=== PATIENT | male | born 1985 | race Caucasian/White ===

== ENCOUNTER 2020-11-17 06:56 | Outpatient (NON) | payer BC, SELFPAY ==
[2020-11-17 18:19] LABS: SARS-CoV-2 RNA PCR Positive
== END 2020-11-17 06:57 ==
PROVIDERS: PCP Family Medicine; Visit Provider Family Medicine
DX: U07.1 COVID-19 (principal); M79.10 Myalgia, unspecified site
CPT/HCPCS: 87635; C9803; U0003

== ENCOUNTER → 2021-03-24 08:17 | Outpatient (CLI) | payer BC, SELFPAY ==
[2021-03-24 18:21] LABS: SARS-CoV-2 RNA PCR Negative
== END ==
PROVIDERS: PCP Family Medicine; Visit Provider Family Medicine
DX: R53.83 Other fatigue (principal); R19.7 Diarrhea, unspecified; Z20.822 Contact with and (suspected) exposure to COVID-19
CPT/HCPCS: C9803; U0003; U0005

== ENCOUNTER → 2023-06-03 08:17 | Outpatient (CLI) | payer BC, SELFPAY ==
--- NOTE | ~2023-06-03 | US_ITS ---
EXAMINATION: US scrotum doppler DATE: 06/03/2023 08:52 INDICATION: Left testicular pain. TECHNIQUE: Grayscale and Doppler ultrasound images of the testes were obtained. COMPARISON: None. FINDINGS: The right testis measures 4.1 x 2.5 x 2.5 cm. The left testis measures 4.0 x 2.5 x 3.2 cm. There is normal vascular flow to both testes. The right epididymis is normal with normal vascular ryne w. The left epididymis demonstrates increased vascularity, consistent with epididymitis. There are sm all bilateral hydroceles. IMPRESSION: 1. Left-sided epididymitis. 2. Small bilateral hydroceles. Reviewed, dictated and finalized at location A.
== END ==
PROVIDERS: PCP Family Medicine
DX: N50.812 Left testicular pain (principal); N45.1 Epididymitis; N43.3 Hydrocele, unspecified
CPT/HCPCS: 76870; 93976

== ENCOUNTER 2024-07-03 12:06 | Outpatient (RCR) | payer BC, SELFPAY ==
[2023-03-09 08:53] LABS: Hematocrit 44.2 % (42.0-52.0); Hemoglobin 15.2 g/dL (14.0-18.0); Mean Corpuscular HGB Conc 34.4 g/dl (32-36); Mean Corpuscular Hemoglobin 31.7 pg (26-34); Mean Corpuscular Volume 92.3 fl (80-100); Mean Platelet Volume 11.7 fl (7.4-10.4); Platelet Count Result 218 k/mm3 (150-375); Red Blood Count 4.79 M/mm3 (4.6-6.20); Red Cell Distribution Width 11.6 % (11.5-14.5); White Blood Count 7.2 K/mm3 (4.5-10.0)
[2023-03-09 10:35] LABS: Iron 83 ug/dL (49-181)
[2023-03-09 11:07] LABS: Percent Iron Saturation 34 % (20-50)
[2023-05-25 09:02] LABS: Hematocrit 45.8 % (42.0-52.0); Hemoglobin 15.9 g/dL (14.0-18.0); Mean Corpuscular HGB Conc 34.7 g/dl (32-36); Mean Corpuscular Hemoglobin 31.9 pg (26-34); Mean Corpuscular Volume 91.8 fl (80-100); Mean Platelet Volume 11.1 fl (7.4-10.4); Platelet Count Result 200 k/mm3 (150-375); Red Blood Count 4.99 M/mm3 (4.6-6.20); Red Cell Distribution Width 12.4 % (11.5-14.5); White Blood Count 7.1 K/mm3 (4.5-10.0)
[2023-05-25 10:39] LABS: Iron 114 ug/dL (49-181)
[2023-05-25 10:51] LABS: Percent Iron Saturation 46 % (20-50)
[2023-07-28 09:47] LABS: Basophils Percent Auto 0.4 % (0.2-1.2); Eosinophils Absolute Auto 0.2 K/mm3 (0-0.3); Eosinophils Percent Auto 2.6 % (0-4.4); Hematocrit 44.1 % (42.0-52.0); Hemoglobin 15.3 g/dL (14.0-18.0); Immature Granulocyte Absolute 0.04 K/mm3 (0.00-0.031); Immature Granulocyte Percent A 0.5 % (0-0.5); Lymphocytes Absolute Auto 1.55 K/mm3 (0.9-3.2); Mean Corpuscular HGB Conc 34.7 g/dl (32-36); Mean Corpuscular Hemoglobin 31.8 pg (26-34); Mean Corpuscular Volume 91.7 fl (80-100); Mean Platelet Volume 11.6 fl (7.4-10.4); Monocytes Absolute Auto 0.6 K/mm3 (0.1-0.6); Monocytes Percent Auto 7.1 % (2.6-8.5); Neutrophils Absolute Auto 5.4 K/mm3 (1.3-6.7); Neutrophils Percent Auto 69.4 % (45.5-73.1); Platelet Count Result 177 k/mm3 (150-375); Red Blood Count 4.81 M/mm3 (4.6-6.20); Red Cell Distribution Width 11.9 % (11.5-14.5); White Blood Count 7.7 K/mm3 (4.5-10.0)
[2023-07-28 11:19] LABS: Iron 164 ug/dL (49-181)
[2023-07-28 11:21] LABS: Alanine Aminotransferase 23 U/L (6-50); Albumin Level 4.6 g/dL (3.5-5.1); Alkaline Phosphatase 77 U/L (38-126); Anion Gap 8 mmol/L (8-16); Aspartate Amino Transferase 30 U/L (17-59); Bilirubin,Total 0.6 mg/dL (0.2-1.3); Blood Urea Nitrogen 22 mg/dL (9-20); Calcium 9.2 mg/dL (8.4-10.2); Carbon Dioxide 29 mmol/L (22-30); Chloride 103 mmol/L (98-107); Estimated Glomerular Filt Rate > 60; Glucose 95 mg/dL (65-110); Potassium 4.2 mmol/L (3.4-5.0); Sodium 140 mmol/L (137-145)
[2023-07-28 11:31] LABS: Percent Iron Saturation 65 % (20-50)
[2023-08-31 10:38] LABS: Basophils Percent Auto 0.3 % (0.2-1.2); Eosinophils Absolute Auto 0.3 K/mm3 (0-0.3); Eosinophils Percent Auto 4.5 % (0-4.4); Hematocrit 44.6 % (42.0-52.0); Hemoglobin 15.3 g/dL (14.0-18.0); Immature Granulocyte Absolute 0.01 K/mm3 (0.00-0.031); Immature Granulocyte Percent A 0.2 % (0-0.5); Lymphocytes Absolute Auto 1.41 K/mm3 (0.9-3.2); Lymphocytes Percent Auto 24.5 % (18.3-44.2); Mean Corpuscular HGB Conc 34.3 g/dl (32-36); Mean Corpuscular Hemoglobin 31.3 pg (26-34); Mean Corpuscular Volume 91.2 fl (80-100); Mean Platelet Volume 11.2 fl (7.4-10.4); Monocytes Absolute Auto 0.4 K/mm3 (0.1-0.6); Monocytes Percent Auto 6.8 % (2.6-8.5); Neutrophils Absolute Auto 3.7 K/mm3 (1.3-6.7); Neutrophils Percent Auto 63.7 % (45.5-73.1); Platelet Count Result 193 k/mm3 (150-375); Red Blood Count 4.89 M/mm3 (4.6-6.20); Red Cell Distribution Width 11.8 % (11.5-14.5); White Blood Count 5.8 K/mm3 (4.5-10.0)
[2023-08-31 12:34] LABS: Iron 140 ug/dL (49-181)
[2023-08-31 12:37] LABS: Alanine Aminotransferase 24 U/L (6-50); Albumin Level 4.4 g/dL (3.5-5.1); Alkaline Phosphatase 73 U/L (38-126); Anion Gap 6 mmol/L (8-16); Aspartate Amino Transferase 30 U/L (17-59); Bilirubin,Total 0.6 mg/dL (0.2-1.3); Blood Urea Nitrogen 19 mg/dL (9-20); Calcium 9.4 mg/dL (8.4-10.2); Carbon Dioxide 29 mmol/L (22-30); Chloride 104 mmol/L (98-107); Estimated Glomerular Filt Rate > 60; Glucose 97 mg/dL (65-110); Potassium 4.4 mmol/L (3.4-5.0); Sodium 139 mmol/L (137-145)
[2023-08-31 12:43] LABS: Percent Iron Saturation 66 % (20-50)
[2023-12-27 14:57] LABS: Hematocrit 42.9 % (42.0-52.0); Mean Corpuscular Hemoglobin 31.6 pg (26-34); Mean Corpuscular Volume 90.5 fl (80-100); Mean Platelet Volume 11.1 fl (7.4-10.4); Platelet Count Result 233 k/mm3 (150-375); Red Blood Count 4.74 M/mm3 (4.6-6.20); Red Cell Distribution Width 11.9 % (11.5-14.5); White Blood Count 9.8 K/mm3 (4.5-10.0)
[2023-12-27 18:37] LABS: Iron 99 ug/dL (49-181)
[2023-12-27 18:47] LABS: Percent Iron Saturation 41 % (20-50)
[2024-07-03 12:15] LABS: Hematocrit 43.1 % (42.0-52.0); Hemoglobin 14.8 g/dL (14.0-18.0); Mean Corpuscular HGB Conc 34.3 g/dl (32-36); Mean Corpuscular Hemoglobin 31.4 pg (26-34); Mean Corpuscular Volume 91.5 fl (80-100); Mean Platelet Volume 11.2 fl (7.4-10.4); Platelet Count Result 192 k/mm3 (150-375); Red Blood Count 4.71 M/mm3 (4.6-6.20); Red Cell Distribution Width 12.5 % (11.5-14.5); White Blood Count 9.3 K/mm3 (4.5-10.0)
[2024-07-03 16:41] LABS: Iron 95 ug/dL (49-181)
[2024-07-03 17:00] LABS: Percent Iron Saturation 37 % (20-50)
== END 2024-07-04 15:56 ==
LOC: AMCINF 12:06
PROVIDERS: Visit Provider Internal Medicine Hematology & Oncology
DX: E83.110 Hereditary hemochromatosis (principal); F41.9 Anxiety disorder, unspecified
CPT/HCPCS: 36415; 80053; 82728; 83540; 83550; 85025; 85027

== ENCOUNTER → 2024-09-13 11:47 | Outpatient (CLI) | payer BC, SELFPAY | PROVIDERS: PCP Family Medicine; Visit Provider Family Medicine | DX: M79.672 Pain in left foot (principal) | CPT/HCPCS: 73630 ==

== ENCOUNTER 2024-10-16 08:18 | Outpatient (CLI) | payer BC, SELFPAY ==
[2024-10-16 08:40] LABS: Basophils Percent Auto 0.2 % (0.2-1.2); Eosinophils Absolute Auto 0.2 K/mm3 (0-0.3); Eosinophils Percent Auto 2.6 % (0-4.4); Hematocrit 43.9 % (42.0-52.0); Hemoglobin 14.9 g/dL (14.0-18.0); Immature Granulocyte Absolute 0.02 K/mm3 (0.00-0.031); Immature Granulocyte Percent A 0.2 % (0-0.5); Lymphocytes Absolute Auto 1.68 K/mm3 (0.9-3.2); Lymphocytes Percent Auto 20.5 % (18.3-44.2); Mean Corpuscular HGB Conc 33.9 g/dl (32-36); Mean Corpuscular Hemoglobin 30.2 pg (26-34); Mean Corpuscular Volume 88.9 fl (80-100); Mean Platelet Volume 10.6 fl (7.4-10.4); Monocytes Absolute Auto 0.6 K/mm3 (0.1-0.6); Monocytes Percent Auto 7.2 % (2.6-8.5); Neutrophils Absolute Auto 5.7 K/mm3 (1.3-6.7); Neutrophils Percent Auto 69.3 % (45.5-73.1); Platelet Count Result 225 k/mm3 (150-375); Red Blood Count 4.94 M/mm3 (4.6-6.20); Red Cell Distribution Width 12.1 % (11.5-14.5); White Blood Count 8.2 K/mm3 (4.5-10.0)
[2024-10-16 13:46] LABS: Iron 87 ug/dL (49-181)
[2024-10-16 13:58] LABS: Percent Iron Saturation 35 % (20-50)
== END 2024-10-16 08:19 | disposition home or self-care (01) ==
LOC: ANHLAB 08:20
PROVIDERS: PCP Family Medicine; Visit Provider Internal Medicine Hematology & Oncology
DX: E83.110 Hereditary hemochromatosis (principal)
CPT/HCPCS: 36415; 82728; 83540; 83550; 85025

== ENCOUNTER 2024-11-13 00:35 | Day surgery (SDC) | payer BC, SELFPAY ==
[2024-11-01 12:10] VITALS: BMI 29.5
[2024-11-13 12:10] VITALS: BP 163/101; PULSE 74; RESP 20; TEMP 36.2; O2SAT 100
[2024-11-13] MEDS: LACTATED RINGERS 1,000 ML 150 ML IV CONT (12:21)
--- NOTE | 2024-11-13 12:27 | WPDANESEPPF ---
Anes - Initial Pre Proc Eval Procedure: Operation Date: 11/13/24 13:30 Proposed Procedures p Colonoscopy - Ethan Bowen MD Date/Time: 11/13/24 12:27 Surgeon: Ethan Bowen MD Pre Op Diagnosis: hx of colon polyps, family hx of cancer Patient Data Age: 39 Gender: M Height: 1.75 m Weight: 96.3 kg Last Vital Signs Temp 36.2 C L 11/13/24 12:10 Pulse 74 11/13/24 12:10 Resp 20 11/13/24 12:10 BP 163/101 H 11/13/24 12:10 Pulse Ox 100 11/13/24 12:10 O2 Del Method Room Air 11/13/24 12:10 Allergies Allergy/AdvReac Type Severity Reaction Status Date / Time No Known Allergies Allergy Verified 11/13/24 12:09 Home Medications ?Medication ?Instructions ?Recorded ?Confirmed ?Type cetirizine 10 mg tablet (Zyrtec) 10 mg PO DAILY PRN allergies 02/16/23 11/13/24 History aspirin 81 mg tablet 81 mg PO DAILY 11/01/24 11/13/24 History escitalopram oxalate 20 mg tablet 20 mg PO DAILY #90 tabs 11/04/24 11/13/24 Rx allopurinol 100 mg tablet 100 mg PO DAILY #30 tabs 11/13/24 11/13/24 Rx colchicine 0.6 mg capsule 0.6 mg PO .COMPLEX PRN gout #30 11/13/24 11/13/24 Rx caps Patient hx anesthesia problems: none Family hx anesthesia problems: none Results Review: All pre-operative results and documents have been reviewed as part of the pre-operative evaluation. [facility] Past Medical History Medical History (Updated 10/16/24 @ 18:13 by Leon Prajapati MD) Inflammatory arthritis Pain in left knee Elevated blood pressure reading in office without diagnosis of hypertension Encounter for prostate cancer screening PSA 0.49 on 09/13/2024. Pain in left foot (09/10/24) X-ray of the left foot on 09/13/2024 was normal. Sed rate 6, uric acid 7.0 on 09/13/2024. Hemochromatosis COVID-19 (07/29/23) 2nd episode tested positive 07/30/2023 Epididymitis Scrotal ultrasound 06/03/2023 with left epididymitis and small bilateral hydroceles. Eczema Dermatitis (~03/09/23) Seasonal allergic rhinitis also allergies to cats. Overweight (BMI 25.0-29.9) BMI 29.0-29.9,adult Hemochromatosis Mixed hyperlipidemia (09/22/22) total cholesterol 208, triglycerides 118, HDL 46 and LDL 138 on 09/22/2022. Cholesterol 251, triglycerides 139, HDL 55, LDL 168 with ratio 4.6 on 09/13/2024. Autosomal dominant hereditary hemochromatosis (~08/2022) Goal with less than 50% iron saturation and ferritin less than 200.genetic testing positive for 2 copies of the HFE pathogenic variant: C282Y/C282Y on 09/22/2022. iron 87 with 35% saturation and ferritin 24.2 with hemoglobin 14.9 on 10/16/2024. Abnormal blood level of iron (11/24/21) iron level elevated at 226 on 11/24/2021. Iron 200, 84% saturation, ferritin 236 on 09/06/2022. Iron 189 with 83% saturation and ferritin 241 on 09/22/2022. Genetic test positive for Hereditary Hemochromatosis. Encounter for wellness examination in adult BMI 28.0-28.9,adult Migraine without aura and without status migrainosus, not intractable normal MRI of the brain at [facility] 09/22/2017 Gastritis (~07/16/21) Diarrhea Fatigue (03/23/21) COVID-19 (11/14/20) Myalgia Ear fullness Herpes zoster Contact dermatitis due to plant Family History Family History Father Patient's father is , Onset Age: 49 Carcinoma of colon Sibling Family history of alcoholism, Onset Age: 37 Grandparent Family history of malignant neoplasm, Onset Age: 70 Social History Social History Smoking status: Never smoker Second hand tobacco smoke exposure: No Alcohol intake: current Alcohol use details: socially Substance use: former Substance use type: does not use Current Housing: Decline to Answer Concerned About Future Housing: Decline to Answer Difficulty Paying Gas/Electric Bills: Decline to Answer Difficulty Paying for Meds: Decline to Answer Currently Unemployed: Decline to Answer Education: Decline to Answer Difficulty w/ Childcare or Family Care: Decline to Answer Anes - Eval Final PreProcedure Day of Procedure 11/13/24 12:27 Patient weight: obese Heart: regular rate and rhythm Lungs: clear to auscultation Airway: Mallampati scale class II Neurological: alert and oriented Last oral intake: >/= 8 hours ASA classification: III Emergent: no Anesthetic plan: proceed Anesthesia type and monitoring: general GIVS and standard monitoring Results Review: All pre-operative results and documents have been reviewed as part of the pre-operative evaluation. Informed Consent: The patient's anesthetic plan and its attendant risks and benefits were discussed with the patient/family/POA. Questions were solicited and answers provided to the satisfaction of the patient/family/POA.
--- NOTE | 2024-11-13 12:42 | P.HP_ITS ---
History of Present Illness History of Present Illness Consent: Risks, benefits, and alternatives have been discussed and questions answered. Patient agrees to proceed with procedure. Chief complaint: hx of colon polyps, family hx of cancer Narrative: Lino Valdez is a 39 year old male with colon polyp 5 years ago Review of Systems Review of Systems: All systems reviewed & are unremarkable except as noted in HPI and below PMFSH Past Medical History Medical History (Updated 10/16/24 @ 18:13 by Leon Prajapati MD) Inflammatory arthritis Pain in left knee Elevated blood pressure reading in office without diagnosis of hypertension Encounter for prostate cancer screening PSA 0.49 on 09/13/2024. Pain in left foot (09/10/24) X-ray of the left foot on 09/13/2024 was normal. Sed rate 6, uric acid 7.0 on 09/13/2024. Hemochromatosis COVID-19 (07/29/23) 2nd episode tested positive 07/30/2023 Epididymitis Scrotal ultrasound 06/03/2023 with left epididymitis and small bilateral hydroceles. Eczema Dermatitis (~03/09/23) Seasonal allergic rhinitis also allergies to cats. Overweight (BMI 25.0-29.9) BMI 29.0-29.9,adult Hemochromatosis Mixed hyperlipidemia (09/22/22) total cholesterol 208, triglycerides 118, HDL 46 and LDL 138 on 09/22/2022. Cholesterol 251, triglycerides 139, HDL 55, LDL 168 with ratio 4.6 on 09/13/2024. Autosomal dominant hereditary hemochromatosis (~08/2022) Goal with less than 50% iron saturation and ferritin less than 200.genetic testing positive for 2 copies of the HFE pathogenic variant: C282Y/C282Y on 09/22/2022. iron 87 with 35% saturation and ferritin 24.2 with hemoglobin 14.9 on 10/16/2024. Abnormal blood level of iron (11/24/21) iron level elevated at 226 on 11/24/2021. Iron 200, 84% saturation, ferritin 236 on 09/06/2022. Iron 189 with 83% saturation and ferritin 241 on 09/22/2022. Genetic test positive for Hereditary Hemochromatosis. Encounter for wellness examination in adult BMI 28.0-28.9,adult Migraine without aura and without status migrainosus, not intractable normal MRI of the brain at [facility] 09/22/2017 Gastritis (~07/16/21) Diarrhea Fatigue (03/23/21) COVID-19 (11/14/20) Myalgia Ear fullness Herpes zoster Contact dermatitis due to plant Family History Family History Father Patient's father is , Onset Age: 49 Carcinoma of colon Sibling Family history of alcoholism, Onset Age: 37 Grandparent Family history of malignant neoplasm, Onset Age: 70 Social History Social History Smoking status: Never smoker Second hand tobacco smoke exposure: No Alcohol intake: current Alcohol use details: socially Substance use: former Substance use type: does not use Current Housing: Decline to Answer Concerned About Future Housing: Decline to Answer Difficulty Paying Gas/Electric Bills: Decline to Answer Difficulty Paying for Meds: Decline to Answer Currently Unemployed: Decline to Answer Education: Decline to Answer Difficulty w/ Childcare or Family Care: Decline to Answer Meds Home Medications and Allergies Home Medications ?Medication ?Instructions ?Recorded ?Confirmed ?Type cetirizine 10 mg tablet (Zyrtec) 10 mg PO DAILY PRN allergies 02/16/23 11/13/24 History aspirin 81 mg tablet 81 mg PO DAILY 11/01/24 11/13/24 History escitalopram oxalate 20 mg tablet 20 mg PO DAILY #90 tabs 11/04/24 11/13/24 Rx allopurinol 100 mg tablet 100 mg PO DAILY #30 tabs 11/13/24 11/13/24 Rx colchicine 0.6 mg capsule 0.6 mg PO .COMPLEX PRN gout #30 11/13/24 11/13/24 Rx caps Allergies Allergy/AdvReac Type Severity Reaction Status Date / Time No Known Allergies Allergy Verified 11/13/24 12:09 Vital Signs Vital Signs - 24 hr 11/13/24 12:10 Temperature 97.2 F L Pulse Rate 74 Respiratory Rate 20 Blood Pressure 163/101 H Pulse Oximetry 100 Oxygen Delivery Room Air Exam Const: General: comfortable and no acute distress HENMT: Face/Nose/Sinus: Normal nares present Eyes: General: appearance normal, both eyes and all related structures Neck: Neck: no JVD Resp: Auscultation: clear to auscultation bilaterally Cardio: Rate: regular rate Rhythm: regular rhythm GI: Inspection: non-distended GI Palp: Yes Soft to palpation Skin: General skin exam: normal color Neuro: General: gait normal Speech: normal speech Extrem: General: normal to inspection Psych: Mental Status: mental status grossly normal Assessment and Plan Assessment and plan (1) Family history of colon cancer in father: Code(s): Z80.0 - Family history of malignant neoplasm of digestive organs Status: Acute (2) Polyp of colon: Onset Date: 10/04/19 Code(s): K63.5 - Polyp of colon Status: Acute Assessment and Plan: colonoscopy
[2024-11-13 12:59] VITALS: BP 110/69; PULSE 76; RESP 19; O2SAT 96
[2024-11-13 13:09] VITALS: BP 122/80; PULSE 71; RESP 16; O2SAT 96
[2024-11-13 13:19] VITALS: BP 132/90; PULSE 61; RESP 17; O2SAT 100
== END 2024-11-13 13:32 | disposition home or self-care (01) ==
PROVIDERS: PCP Family Medicine; Visit Provider Internal Medicine Gastroenterology
PROC: 0DJD8ZZ Inspection of Lower Intestinal Tract, Via Natural or Artificial Opening Endoscopic (ICD-10-PCS; CPT 45378; principal; 2024-11-13 13:30)
DX: Z12.11 Encounter for screening for malignant neoplasm of colon (principal); K62.1 Rectal polyp; K62.89 Other specified diseases of anus and rectum; K64.8 Other hemorrhoids; Z80.0 Family history of malignant neoplasm of digestive organs; E66.9 Obesity, unspecified; Z68.31 Body mass index [BMI] 31.0-31.9, adult
CPT/HCPCS: 45380; 88305; J2003; J2704; J7120